=== PATIENT | male | born 1970 | race Caucasian/White ===

== ENCOUNTER 2025-04-25 12:00 | Inpatient (IN) | payer MEDICAID ==
[~2025-04-25] VITALS: Ht 177.8 cm; Wt 136.9 kg
[~2025-04-25 12:00] MED LIST: ACET500T58 PO; CEPH250C PO; IBUP-1455 PO
--- NOTE | 2025-04-25 13:15 | ED.PDOC ---
History of Present Illness(SKN HPI Comments A 54 YEAR OLD MALE BROUGHT IN BY AMBULANCE PRESENTS TO THE ED WITH COMPLAINT OF RASH. PATIENT STATES HE HAS BEEN EXPERIENCING A PAINFUL RASH ON HIS BILATERAL INNER THIGHS. PUBIC REGION, AND BUTTOCK REGIONS WITH DRAINAGE AND A FOUL ODOR FOR THE PAST 5 DAYS. PATIENT IS CONCERNED THAT THIS RASH IS CURRENTLY INFECTED. PATIENT DENIES FEVER, CHILLS, SHORTNESS OF BREATH, CHEST PAIN, ABDOMINAL PAIN, NAUSEA, VOMITING, HEADACHE, OR OTHER COMPLAINTS. NO OTHER SYMPTOMS OR MODIFYING FACTORS AT THIS TIME. PATIENT IS ALERT, ORIENTED X 4. Chief Complaint: Rash Time Seen by MD: 12:17 Primary Care Provider: unknown History of Present Illness: Nurses Notes, Failure Analysis Engineer Notes, Medications, Allergies Home Meds Active Scripts Acetaminophen (Acetaminophen) 500 Mg Tab, 500 MG PO Q4HP PRN, #30 TAB Prov:NIEVES SPRING PAC 11/26/23 Ibuprofen Micronized (Ibuprofen) 800 Mg Tab, 800 MG PO Q8HP PRN, #20 TAB Prov:NIEVES SPRING PAC 11/26/23 Cephalexin (KEFLEX CAPSULE) 250 Mg Cp, 1 CAP PO QID, #40 CAP Prov:NIEVES SPRING PAC 11/26/23 Information Source: Patient, Emergency Med Personnel Mode of Arrival: EMS Severity: Moderate Timing: Days Duration: Since onset, Days Prehospital treatment: None Location: Buttock, Pelvis, Other (BILATERAL INNER THIGH) Mechanism: Spontaneous Onset Developed: Rash Occurence: Indoors Object: None Condition of Object: Contaminated, Dirty, None Retained Foreign Body: No Wound Type: None Immunization Status of Animal: NA Tetanus: Unknown History of: Diabetes Associated Signs and Symptoms: Redness, Pus, Pain Past Medical History PAST MEDICAL HISTORY: CKF, DM, HTN Surgical History: Denies all surgeries Family History Family History: Reviewed,noncontributory to illness Social History Smoker: Non-Smoker Alcohol: Denies ETOH Use Drugs: Denies Drug Use Lives In: Home Constitutional: denies: chills, diaphoresis, fatigue, fever, malaise, sweats, weakness, others EENTM: denies: blurred vision, double vision, ear bleeding, ear discharge, ear drainage, ear pain, ear ringing, eye pain, eye redness, hearing loss, mouth pain, mouth swelling, nasal discharge, nose bleeding, nose congestion, nose pain, photophobia, tearing, throat pain, throat swelling, voice changes, others Respiratory: denies: cough, hemoptysis, orthopnea, SOB at rest, shortness of breath, SOB with excertion, stridor, wheezing, others Cardiovascular: denies: chest pain, dizzy spells, diaphoresis, Dyspnea on exertion, edema, irregular heart beat, left arm pain, lightheadedness, palpitations, PND, syncope, others Gastrointestinal: denies: abdomen distended, abdominal pain, blood streaked bowels, constipated, diarrhea, dysphagia, difficulty swallowing, hematemesis, melena, nausea, poor appetite, poor fluid intake, rectal bleeding, rectal pain, vomiting, others Genitourinary: denies: burning, dysuria, flank pain, frequency, hematuria, incontinence, penile discharge, penile sore, pain, testicle pain, testicle swelling, urgency, others Neurological: denies: dizziness, fainting, headache, left sided numbness, left sided weakness, numbness, paresthesia, pre-existing deficit, right sided numbness, right sided weakness, seizure, speech problems, tingling, tremors, weakness, others Musculoskeletal: denies: back pain, gout, joint pain, joint swelling, muscle pain, muscle stiffness, neck pain, others Integumetry: reports: lesions, rash (RASH OF BILATERAL INNER THIGHS, PUBIC REGION, AND BUTTOCK REGION), wounds; denies: bruises, change in color, change in hair/nails, dryness, laceration, lumps, others Allergic/Immunocompromised: denies: Difficulty Healing, Frequent Infections, Hives, Itching, others Hematologic/Lymphatic: denies: anemia, blood clots, easy bleeding, easy bruising, swollen glands, others Endocrine: denies: excessive hunger, excessive sweating, excessive thirst, excessive urination, flushing, intolerance to cold, intolerance to heat, une xplained weight gain, unexplained weight loss, others Psychiatric: denies: anxiety, bipolar disorder, depression, hopeless, panic disorder, schizophrenia, sleepless, suicidal, others All Other Systems: Reviewed and Negative Physical Exam General Appearance: Mild Distress, Obese HEENT: Normal ENT Inspection, PERRL/EOMI, Pharynx Normal, TMs Normal Neck: Full Range of Motion, Non-Tender, Normal, Normal Inspection Respiratory: Chest Non-Tender, Lungs Clear, No Accessory Muscle Use, No Respiratory Distress, Normal Breath Sounds Cardiovascular: No Edema, No JVD, No Murmur, No Gallop, Normal Peripheral Pulses, Regular Rate/Rhythm Breast Exam: Deferred Gastrointestinal: No Organomegaly, Non Tender, No Pulsatile Mass, Normal Bowel Sounds, Soft Genitalia: Deferred Pelvic: Lesions, Other (ERYTHEMA AND PATCHY SKIN RASH NOTED TO BILATERAL GROIN AREA THAT EXTENDS TO POSTERIOR UPPER INNER THIGHS AND BUTTOCK REGION. 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 ) Peripheral Pulses: 2+ carotid (R), 2+ carotid (L), 2+ dorsalis pedis (R), 2+ dorsalis pedis (L) Lymphatic: No Adenopathy Was a procedure done? Was a procedure done?: No Differential Diagnosis (INTG) Differential Diagnosis: N/A Differential Diagnosis: Atopic dermatitis, Cellulitis, Contact Dermatitis, Erysipelas, Tinea, Urticaria Differential Diagnosis: N/A Abscess: N/A Differential Diagnosis: N/A X-Ray, Labs, Meds, VS Vital Signs Date Time Temp Pulse Resp B/P (MAP) Pulse Ox O2 Delivery O2 Flow Rate FiO2 04/25/25 12:02 98.9 108 17 119/84 99 98.9 Lab Test 04/25/25 13:18 04/25/25 13:15 Range/Units Lactic Acid Level Pending White Blood Count 12.9 H 4.4-10.8 10^3/uL Red Blood Count 4.95 4.5-5.90 10^6/uL Hemoglobin 14.9 13.5-17.5 g/dL Hematocrit 43.7 41.0-53.0 % Mean Corpuscular Volume 88.4 80.0-100.0 fL Mean Corpuscular Hemoglobin 30.1 28.0-32.0 pg Mean Corpuscular Hemoglobin Concent 34.1 32.0-36.0 g/dL Red Cell Distribution Width 15.3 H 11.8-14.3 % Platelet Count 338 140-450 10^3/uL Mean Platelet Volume 7.3 6.9-10.8 fL Neutrophils (%) (Auto) 85.1 H 37.0-80.0 % Lymphocytes (%) (Auto) 7.3 L 10.0-50.0 % Monocytes (%) (Auto) 6.7 0.0-12.0 % Eosinophils (%) (Auto) 0.6 0.0-7.0 % Basophils (%) (Auto) 0.3 0.0-2.0 % Neutrophils # (Auto) 11.0 H 1.6-8.6 10 ^3/uL Lymphocytes # (Auto) 0.9 0.4-5.4 10 ^3/uL Monocytes # (Auto) 0.9 0-1.3 10 ^3/uL Eosinophils # (Auto) 0.1 0-0.8 10 ^3/uL Basophils # (Auto) 0 0-0.2 10 ^3/uL Nucleated Red Blood Cells 0.0 % Sodium Level Pending Potassium Level Pending Chloride Level Pending Carbon Dioxide Level Pending Anion Gap Pending Blood Urea Nitrogen Pending Creatinine Pending Glomerular Filtration Rate Calc Pending BUN/Creatinine Ratio Pending Serum Glucose Pending Calcium Level Pending X-Ray, Labs, Meds, VS Comment EXTERNAL MEDICAL RECORDS REVIEWED: [NONE] INDEPENDENT HISTORIANS: [NONE] SOCIAL DETERMINANTS OF HEALTH: [NONE] LABS ORDERED: CBC, BMP, UA, LACTIC ACID W/REFLEX, BLOOD CULTURE REVIEWED AND INTERPRETED RESULTS: IMAGING ORDERED: NONE TREATMENTS ORDERED: ROCEPHIN 2 G IV PROCEDURES PERFORMED: NONE CRITICAL CARE TIME: NONE I HAVE DISCUSSED THE PATIENT WITH THE ATTENDING PHYSICIAN DR. SERRA AND HE AGREES WITH THE PATIENT'S PLAN OF CARE. UPON MY PHYSICAL EXAMINATION, THE PATIENT HAD A RASH ON HIS BILATERAL INNER THIGHS, PUBIC REGION, AND BUTTOCK REGION WITH ERYTHEMA, DRAINAGE, AND FOUL ODOR CONSISTENT WITH TINEA CRURIS AND A SECONDARY CELLULITIS INFECTION. NO OPEN WOUNDS WERE NOTED. DUE TO THE PATIENT'S HISTORY OF DIABETES, MORBIDITY, AND HIS PHYSICAL EXAM FINDINGS BEING CONSISTENT WITH TINEA CRURIS AND A SECONDARY CELLULITIS INFECTION, I HAVE DETERMINED THE PATIENT NEEDS TO BE ADMITTED FOR FURTHER TREATMENT AND EVALUATION. THE ON-CALL HOSPITALIST WILL BE CONTACTED FOR ADMISSION OF THE PATIENT. Time of 1ST Reevaluation: 14:15 Reevaluation 1ST: Unchanged Patient Education/Counseling: Diagnosis, Treatment Family Education/Counseling: Diagnosis, Treatment SEPSIS Sepsis Screen Date sepsis recognized/suspect: Apr 25, 2025 Time Sepsis recognized/suspect: 1202 Recent Procedure: No On Antibiotic Therapy: No Respiratory Rate >20: No Heart Rate >90: Yes Temp<36 C (96.8 F) or >38.3 C: No SBP <90 or MAP <65 mmHG: No New Acute Mental Status Change: No Is the patient on CPAP, BIPAP,: No Physician Orders Basic Metabolic Panel (04/25/25 13:07) Urinalysis (04/25/25 13:07) Lactic Acid W/ Reflex Order (04/25/25 13:07) Blood Culture (04/25/25 13:07) Heplock Iv (04/25/25 ) Ceftriaxone 2gm/50ml (Rocephin 2gm/50ml) (04/25/25 13:15) Vital Signs Date Time Temp Pulse Resp B/P (MAP) Pulse Ox O2 Delivery O2 Flow Rate FiO2 04/25/25 12:02 98.9 108 17 119/84 99 98.9 Laboratory Tests Test 04/25/25 13:15 04/25/25 13:18 White Blood Count 12.9 10^3/uL (4.4-10.8) H Lactic Acid Level Pending Departure 1 Departure Time of Disposition: 14:15 Impression: Primary Impression: Cellulitis of groin Additional Impressions: Tinea cruris Morbid obesity Disposition: 09 ADMITTED INPATIENT Condition: Serious Critical Care Note Critical Care Time?: No Stability Stability form required: Yes Unstable for transfer: Requires medication, Needs higher than EMT, Possible rapid decline I personally scribed for DAISY BUSTOS ([email or web address]) on 04/25/25 at 13:15. Electronically submitted by Jean Pierre Riley ([email or web address]). I personally scribed for DAISY BUSTOS ([email or web address]) on 04/25/25 at 13:16. Electronically submitted by Jean Pierre Riley ([email or web address]). DAISY BUSTOS Apr 25, 2025 13:15
[2025-04-25 13:54] LABS: Hematocrit 43.7 % (41.0-53.0); Hemoglobin 14.9 g/dL (13.5-17.5); Mean Corpuscular Hemoglobin 30.1 pg (28.0-32.0); Mean Corpuscular Volume 88.4 fL (80.0-100.0); Nucleated Red Blood Cells % 0.0 %
[2025-04-25 14:03] LABS: Chloride 101 mmol/L (98-107); Potassium 4.9 mmol/L (3.5-5.1)
[2025-04-25 14:04] LABS: Anion Gap 12 (5-15); Carbon Dioxide 21 mmol/L (20-31)
[2025-04-25 14:06] LABS: Calcium 10.6 mg/dL (8.7-10.4); Sodium 134 mmol/L (136-145)
[2025-04-25 14:09] LABS: BUN/Creatinine Ratio 31.2 (10.0-20.0); Blood Urea Nitrogen 59 mg/dL (9-23); Glucose 164 mg/dL (74-106)
[2025-04-25] MEDS: CLOTRIMAZOLE 1 % CREAM 15GM TOP ONE (15:15)
[2025-04-25] MEDS ORDERED: DEXTROSE (50%) 50ML SYRG IV PRN (15:15)
[2025-04-25] MEDS ORDERED: MORPHINE SULFATE INJ 2 MG/ml SYRG IV PRN (15:15)
[2025-04-25] MEDS: CLINDAMYCIN 300MG IV 50 ML IV ONE (15:15)
[2025-04-25] MEDS ORDERED: ONDANSETRON HCL 4 MG/2 ML VIAL IV PRN (15:15)
[2025-04-25 15:41] LABS: INR 1.93 (0.9-1.15); Partial Thromboplastin Time 45.0 SEC (24.5-34.5); Prothrombin Time 19.2 sec (9.3-11.8)
--- NOTE | 2025-04-25 15:56 | DVHHP2 ---
History of Present Illness History of Present Illness This is a 54-year-old male with with past medical history of type 2 diabetes mellitus, hypertension, HLD, type B aortic dissection, peripheral neuropathy, hypokalemia, chronic back, spinal stenosis with herniated disc pain present to ER with the complain of rash in perineal region including genitalia and bilateral inner thigh associated with urinary symptoms for 7 days accompanied with fever. Patient reports his perineal area rash that started 7 days ago and has been progressively worsen . For past 5 days he has been noticed brownish discharge and painful micturition. He has been experiencing fever since Monday and took Tylenol. symptoms appear significant discomfort. Never done angiogram or stress test, seen by cardiology in 2010. Past medical history: Type 2 diabetes mellitus with peripheral neuropathy, HTN, hypercholesterolemia, type B aortic dissection in 2009 not surgically treated Surgical history: Oral surgery Family history: Paternal grandmother: Cancer Social history: Substance abuse occasionally alcohol, denies any marijuana cocaine or methamphetamine Decision-making: Patient is the decision maker and his medical care, lives with roommate in a private house PCP: unknown Home medication: Diltiazem, pantoprazole, aspirin, enalapril, gabapentin, metformin, glipizide, potassium chloride, tramadol, furosemide , rosuvastatin, amitriptyline, iron, fish oil, Pepcid Review of Systems Constitutional: Yes: Fever, Chills, Malaise Musculoskeletal: other (Gait instability), back pain Skin: Rash, Lesions, Other (Foul smelling discharge perineal region) Medications Current Medications Medications Dose Ordered Sig/Yamileth Route Start Time Stop Time Status Last Admin Dose Admin Acetaminophen 650 mg Q6HP PRN PO 04/25/25 15:15 UNV Ondansetron HCl 4 mg Q4HP PRN IV 04/25/25 15:15 UNV Morphine Sulfate 2 mg Q4HPRN PRN IV 04/25/25 15:15 UNV Enoxaparin Sodium 40 mg DAILY SC 04/26/25 10:00 UNV Clindamycin Phosphate 50 ml @ 50 mls/hr Q8HR IV 04/25/25 22:00 UNV Ceftriaxone Sodium 50 ml @ 100 mls/hr DAILY@09 IV 04/26/25 09:00 UNV Clotrimazole 1 applic Q12HR TOP 04/25/25 22:00 UNV Sodium Chloride 1,000 ml @ 150 mls/hr Q6H40M IV 04/25/25 15:15 UNV Diagnostic Test (Pha) 1 strip ACHS 04/25/25 17:00 UNV Insulin Human Regular ACHS SC 04/25/25 17:00 UNV Dextrose 50 ml UD PRN IV 04/25/25 15:15 UNV Exam Vital Signs Vital Signs Date Time Temp Pulse Resp B/P (MAP) Pulse Ox O2 Delivery O2 Flow Rate FiO2 04/25/25 12:02 98.9 108 17 119/84 99 98.9 General Appearance: Alert, Oriented X3, Cooperative, mild distress, moderate distress, Other (obese, foul smelling discharge in perineal region including genitalia) HEENT: Atraumatic, PERRLA Respiratory: Clear to auscultation, Normal air movement Cardiovascular: Regular rate, Normal S1, Normal S2 Abdominal: Normal bowel sounds, Soft, No tenderness Extremities: No clubbing, No cyanosis, Normal pulses Skin: No rashes, No breakdown Neuro: Normal speech, Other (Gait instability) Labs/Xrays Labs Test 04/25/25 13:18 04/25/25 13:15 Range/Units Lactic Acid Level 1.1 0.4-2.0 mmol/L White Blood Count 12.9 H 4.4-10.8 10^3/uL Red Blood Count 4.95 4.5-5.90 10^6/uL Hemoglobin 14.9 13.5-17.5 g/dL Hematocrit 43.7 41.0-53.0 % Mean Corpuscular Volume 88.4 80.0-100.0 fL Mean Corpuscular Hemoglobin 30.1 28.0-32.0 pg Mean Corpuscular Hemoglobin Concent 34.1 32.0-36.0 g/dL Red Cell Distribution Width 15.3 H 11.8-14.3 % Platelet Count 338 140-450 10^3/uL Mean Platelet Volume 7.3 6.9-10.8 fL Neutrophils (%) (Auto) 85.1 H 37.0-80.0 % Lymphocytes (%) (Auto) 7.3 L 10.0-50.0 % Monocytes (%) (Auto) 6.7 0.0-12.0 % Eosinophils (%) (Auto) 0.6 0.0-7.0 % Basophils (%) (Auto) 0.3 0.0-2.0 % Neutrophils # (Auto) 11.0 H 1.6-8.6 10 ^3/uL Lymphocytes # (Auto) 0.9 0.4-5.4 10 ^3/uL Monocytes # (Auto) 0.9 0-1.3 10 ^3/uL Eosinophils # (Auto) 0.1 0-0.8 10 ^3/uL Basophils # (Auto) 0 0-0.2 10 ^3/uL Nucleated Red Blood Cells 0.0 % Sodium Level 134 L 136-145 mmol/L Potassium Level 4.9 3.5-5.1 mmol/L Chloride Level 101 98-107 mmol/L Carbon Dioxide Level 21 20-31 mmol/L Anion Gap 12 5-15 Blood Urea Nitrogen 59 H 9-23 mg/dL Creatinine 1.89 H 0.700-1.30 mg/dL Glomerular Filtration Rate Calc 42 >90 mL/min BUN/Creatinine Ratio 31.2 H 10.0-20.0 Serum Glucose 164 H 74-106 mg/dL Calcium Level 10.6 H 8.7-10.4 mg/dL SEPSIS Sepsis Screen Date sepsis recognized/suspect: Apr 25, 2025 Time Sepsis recognized/suspect: 1202 Recent Procedure: No On Antibiotic Therapy: No Respiratory Rate >20: No Heart Rate >90: Yes Temp<36 C (96.8 F) or >38.3 C: No SBP <90 or MAP <65 mmHG: No New Acute Mental Status Change: No Is the patient on CPAP, BIPAP,: No Physician Orders Urinalysis (04/25/25 13:07) Blood Culture (04/25/25 13:07) Heplock Iv (04/25/25 ) Admit (04/25/25 15:06) Code Status (04/25/25 15:06) Vital Signs .PER UNIT PROTOCOL (04/25/25 15:06) Review Orders With Adm. (04/25/25 15:06) [facility]Diabetes (04/25/25 Dinner) Acetaminophen Tablet (Tylenol Tablet) (04/25/25 15:15) Notify Md Of Changes From Base (04/25/25 15:06) Advance Directive (04/25/25 15:06) Chest Two Views Routine (04/26/25 04:00) Patient Condition (04/25/25 15:06) Allergies (04/25/25 15:06) Ondansetron Hcl (Zofran) (04/25/25 15:15) Morphine Sulfate Injection (04/25/25 15:15) Enoxaparin Sodium (Lovenox) (04/26/25 10:00) Oxygen By Nasal Cannula (04/25/25 15:06) Stat Ekg For Chest Pain (04/25/25 15:06) Notify Md Of Changes From Base (04/25/25 15:06) Commercial Artist For 24 Hours (04/25/25 15:06) Emergency Dysrhythmia Protocol (04/25/25 15:06) Rhythm Strips Once Every Shift (04/25/25 15:06) Clindamycin 300mg Iv (Cleocin Iv) (04/25/25 22:00) Clindamycin 300mg Iv (Cleocin Iv) (04/25/25 15:15) Ceftriaxone 1gm/50ml (Rocephin) (04/26/25 09:00) Clotrimazole 1% Topical Cream (Lotrimin (04/25/25 15:15) Clotrimazole 1% Topical Cream (Lotrimin (04/25/25 22:00) Sodium Chloride 0.9% (04/25/25 15:15) Sodium Chloride 0.9% (04/25/25 15:15) Glucose Blood (Accu-Chek Comfort Curve T (04/25/25 17:00) Insulin R (Human) (Insulin R) (04/25/25 17:00) Dextrose 50% Syringe (04/25/25 15:15) Vitamin D, 25-Hydroxy (04/25/25 15:06) Vitamin B12 (04/25/25 15:06) Thyroid Stimulating Hormone (04/25/25 15:06) PTPTT (04/25/25 15:06) Phosphorus (04/25/25 15:06) Magnesium (04/25/25 15:06) Lipid Panel (04/25/25 15:06) Hemoglobin A1c (04/25/25 15:06) Drug Screen (04/25/25 15:06) Urine Bacterial Culture (04/25/25 15:06) * Wound Consult (04/25/25 ) Wound Culture W/ Gs (04/25/25 15:06) Electrocardigram (04/25/25 15:16) Hepatic Panel (04/25/25 15:16) Echo 2d Mode Cardiac Dop (04/25/25 15:18) Vital Signs Date Time Temp Pulse Resp B/P (MAP) Pulse Ox O2 Delivery O2 Flow Rate FiO2 04/25/25 12:02 98.9 108 17 119/84 99 98.9 Laboratory Tests Test 04/25/25 13:15 04/25/25 13:18 White Blood Count 12.9 10^3/uL (4.4-10.8) H Lactic Acid Level 1.1 mmol/L (0.4-2.0) Medications Medications Dose Ordered Sig/Yamileth Route Start Time Stop Time Status Last Admin Dose Admin Ceftriaxone Sodium/Dextrose 50 ml @ 50 mls/hr ONCE ONCE IV 04/25/25 13:15 04/25/25 14:14 DC 04/25/25 14:05 50 MLS/HR Assessment/Plan Assessment/Plan Sepsis due to cellulitis perineal area including genitalia Perineal Candidiasis Patient reports fever last 5 days which may be related to infection. Patient notes he hepatitis and urinary symptoms supports an infectious process leg cellulitis WBC 12.9 with left-shifted, neutrophil 85.1 Acetaminophen Morphine if dggvphib-[id number]-eybywv pain Encouraged hydration Started empiric antibiotic clindamycin and ceftriaxone Topical clotrimazole IV fluid 1 L bolus stat and then continue 150 cc/hour Blood culture Urine culture Wound culture Wound consult Monitor vitals Questionable cardiac arrhythmia Home medication diltiazem, carvedilol Aspirin EKG ordered Echo JAYESH due to vasomotor nephropathy Creatinine level 1.49 unknown baseline EGFR 42 Avoid Nephrotoxic drugs IV fluid Type 2 diabetes mellitus with peripheral neuropathy History of diabetes which appeared to be not well controlled Hemoglobin A1c Insulin sliding scale Home medication: Metformin, glipizide Gabapentin Amlodipine Essential hypertension Home medication enalapril and diltiazem Current blood pressure soft, we will resume accordingly Monitor blood pressure THERESE, NCS, low-fat diet Hyperlipidemia Cardiac diet Atorvastatin 20 mg Hyponatremia Sodium level 134, on admission BMP History of aortic dissection, no surgery History of type B aortic dissection in 2009 which was managed conservatively without surgery Not follow-up with 3d specialist since 2010 No stress test or angiogram done Continue aspirin for cardiovascular protection Diet: Carbohydrate consistent GI prophylaxis: Pantoprazole DVT prophylaxis Lovenox Goals of care discussions, more than 26 minute spent with patient. Full code status. Case discussed with Dr. Jimenes Plan discussed with: Patient, Other (Nurse) Date of Service: Apr 25, 2025 Billing Provider: ADAMS HURTADO Common Visit Codes: [id number] INP/OBS CARE (HIGH) Secondary Visit Codes: [id number] CARE PLAN 30 MINUTES ADAMS HURTADO Apr 25, 2025 15:56
[2025-04-25] MEDS: SODIUM CHLORIDE 0.9% 1,000 ML IV ONE (16:15)
[2025-04-25 16:20] LABS: Magnesium 1.9 mg/dL (1.6-2.6)
[2025-04-25 16:22] LABS: Cholesterol 121.0 mg/dL (< 200); HDL Cholesterol 11.0 mg/dL (40-59); Triglycerides 204.0 mg/dL (< 150)
[2025-04-25 16:27] VITALS: PULSE 107; RESP 17; O2SAT 93
[2025-04-25 16:48] LABS: Alanine Aminotransferase 29.0 U/L (7-40); Alkaline Phosphatase 61.0 U/L (46-116); Total Protein 7.6 g/dL (5.7-8.2)
[2025-04-25 16:49] LABS: Albumin 4.3 g/dL (3.2-4.8); Bilirubin, Direct 0.4 mg/dL (<0.3); Bilirubin, Total 0.9 mg/dL (0.2-1.0)
[2025-04-25 17:00] VITALS: BP 109/66; PULSE 102; RESP 18; TEMP 98; O2SAT 95
[2025-04-25 17:13] VITALS: PULSE 99; RESP 18; O2SAT 98
[2025-04-25] MEDS: SODIUM CHLORIDE 0.9% 1,000 ML IV SCH (17:15)
[2025-04-25] MEDS: ACCU-CHEK COMFORT CURVE STRIP VI SCH (17:30)
[2025-04-25] MEDS: InsuLIN REG 1unit/0.01ml Soln (100units/ml) SC SCH (17:30)
[2025-04-25 20:00] VITALS: RESP 19; O2SAT 0
[2025-04-25 21:00] VITALS: BP 125/79; PULSE 110; RESP 19; TEMP 97.9; O2SAT 97
[2025-04-25] MEDS: CLOTRIMAZOLE 1 % CREAM 15GM TOP SCH (22:19)
[2025-04-25] MEDS: ATORVASTATIN 20 MG TAB PO SCH (22:19)
[2025-04-25] MEDS: CLINDAMYCIN 300MG IV 50 ML IV SCH (22:20)
[2025-04-25] MEDS: AMITRIPTYLINE HCL 10 MG TAB PO SCH (22:20)
[2025-04-26] VITALS (8 sets, daily range): BP systolic 104–143; BP diastolic 64–95; PULSE 61–103; RESP 18–21; TEMP 97.6–98.1; O2SAT 94–100
[2025-04-26] MEDS: PANTOPRAZOLE 40 MG TAB PO SCH (05:36)
[2025-04-26 07:54] LABS: Hematocrit 38.8 % (41.0-53.0); Hemoglobin 13.4 g/dL (13.5-17.5); Mean Corpuscular Hemoglobin 30.0 pg (28.0-32.0); Mean Corpuscular Volume 86.9 fL (80.0-100.0); Nucleated Red Blood Cells % 0.2 %
[2025-04-26 07:55] LABS: Anion Gap 12 (5-15); Carbon Dioxide 21 mmol/L (20-31); Chloride 105 mmol/L (98-107); Potassium 4.3 mmol/L (3.5-5.1); Sodium 138 mmol/L (136-145)
[2025-04-26 07:56] LABS: Calcium 10.0 mg/dL (8.7-10.4)
[2025-04-26 08:01] LABS: BUN/Creatinine Ratio 44.9 (10.0-20.0)
[2025-04-26 08:02] LABS: Blood Urea Nitrogen 57 mg/dL (9-23); Glucose 142 mg/dL (74-106)
[2025-04-26] MEDS: ENOXAPARIN SOD 40 MG/0.4 ML SYRINGE SC SCH (09:45)
--- NOTE | 2025-04-26 11:00 | DVH ---
Chest x-ray Technique: PA and lateral views CLINICAL INDICATION: SOB FINDINGS: Left ventricular configuration to the heart. Aorta tortuous. No infiltrates or effusions. IMPRESSION: 1. No acute cardiopulmonary pathology
--- NOTE | 2025-04-26 16:38 | DVHPN2 ---
Subjective Patient is here for perineal cellulitis as well as perineal candidiasis. Currently on antibiotics and antifungal cream. Reviewed: Care Plan Changes from previous H/P or p: No Changes Musculoskeletal: other (Gait instability), back pain Skin: Rash, Lesions, Other (Foul smelling discharge perineal region) Objective Vitals Vital Signs Date Time Temp Pulse Resp B/P (MAP) Pulse Ox O2 Delivery O2 Flow Rate FiO2 04/26/25 16:27 97.6 96 20 124/87 (99) 96 97.6 04/26/25 08:00 Room Air* 0 21 Intake/Output Intake and Output 04/26/25 07:00 Intake Total 1650 ml Balance 1650 ml Intake Oral 1600 ml IV Total 50 ml # Voids 4 # Bowel Movements 2 Exam HEENT pupils are reactive Neck is supple CV is S1-S2 regular rate and rhythm Respiratory diminished breath sounds bases GI positive bowel sound 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 Medications Current Medications Medications Dose Ordered Sig/Yamileth Route Start Time Stop Time Status Last Admin Dose Admin Acetaminophen 650 mg Q6HP PRN PO 04/25/25 15:15 Ondansetron HCl 4 mg Q4HP PRN IV 04/25/25 15:15 Morphine Sulfate 2 mg Q4HPRN PRN IV 04/25/25 15:15 Enoxaparin Sodium 40 mg DAILY SC 04/26/25 10:00 04/26/25 09:45 40 MG Clindamycin Phosphate 50 ml @ 50 mls/hr Q8HR IV 04/25/25 22:00 04/26/25 15:57 50 MLS/HR Ceftriaxone Sodium 50 ml @ 100 mls/hr DAILY@09 IV 04/26/25 09:00 04/26/25 09:45 100 MLS/HR Clotrimazole 1 applic Q12HR TOP 04/25/25 22:00 04/26/25 10:28 1 APPLIC Sodium Chloride 1,000 ml @ 150 mls/hr Q6H40M IV 04/25/25 17:15 04/26/25 12:54 150 MLS/HR Diagnostic Test (Pha) 1 strip ACHS 04/25/25 17:00 04/26/25 11:30 1 STRIP Insulin Human Regular ACHS SC 04/25/25 17:00 04/26/25 12:24 3 UNITS Dextrose 50 ml UD PRN IV 04/25/25 15:15 Pantoprazole Sodium 40 mg DAILY@0600 PO 04/26/25 06:00 04/26/25 05:36 40 MG Amitriptyline HCl 10 mg HS PO 04/25/25 22:00 04/25/25 22:20 10 MG Atorvastatin Calcium 20 mg HS PO 04/25/25 22:00 04/25/25 22:19 20 MG Laboratory Results Laboratory Tests 04/26/25 07:30 Chemistry Test 04/26/25 07:30 Calcium Level 10.0 mg/dL (8.7-10.4) Microbiology Microbiology Date/Time Source Procedure Growth Status 04/25/25 13:15 Blood Blood Culture - Preliminary NO GROWTH AFTER 24 HOURS OF INCUBATION. Resulted Assessment/Plan Assessment/Plan 54-year-old male with a known history of diabetes mellitus type 2, hypertension, dyslipidemia, peripheral neuropathy, chronic back pain, history of type B aortic dissection conservative management, presented to the hospital with a perianal pain rash found to have 1. Perineal cellulitis 2. Perineal candidiasis 3. Acute kidney injury suspected secondary to vasomotor nephropathy 4. Hyperglycemia in the setting of Diabetes mellitus type 2 8. Chronic back pain 5. Hypertension 6. Peripheral neuropathy 7. Morbid obesity classIII -IV antibiotics, antifungal cream, PT evaluation and treatment. Plan discussed with: Patient Problem List: (1) Cellulitis of groin (2) Morbid obesity Date of Service: Apr 26, 2025 Billing Provider: DAMIAN SHEPPARD MD Common Visit Codes: [id number] INP/OBS CARE(MOD) DAMIAN SHEPPARD MD Apr 26, 2025 16:38
[2025-04-26] MEDS: ACETAMINOPHEN 325 MG TAB PO PRN (22:26)
[2025-04-27] VITALS (8 sets, daily range): BP systolic 132–147; BP diastolic 85–99; PULSE 78–96; RESP 18–20; TEMP 97.6–98; O2SAT 90–96
[2025-04-27 10:32] LABS: Urine Protein, UAD TRACE (Negative)
[2025-04-27 10:58] LABS: Amphetamine Screen, Urine Neg (NEGATIVE)
[2025-04-27 11:08] LABS: Barbiturate Scree,Urine Neg (NEGATIVE); Benzodiazephine Screen, Urine Neg (NEGATIVE); Cannabinoid Screen, Urine Neg (NEGATIVE); Cocaine Screen, Urine Neg (NEGATIVE); Opiate Scree,Urine Neg (NEGATIVE); Phencyclidine Screen, Urine Neg (NEGATIVE)
--- NOTE | 2025-04-27 12:52 | DVHPNRES ---
Progress Note Date Seen: Apr 27, 2025 Resident Creating Document: ADAMS HURTADO RESIDENT Medical Necessity Reason Pt with a Central, PICC or Fol: No Subjective Review of Systems This is a 54-year-old male with with past medical history of type 2 diabetes mellitus, hypertension, HLD, type B aortic dissection, peripheral neuropathy, hypokalemia, chronic back, spinal stenosis with herniated disc pain present to ER with the complain of rash in perineal region including genitalia and bilateral inner thigh associated with urinary symptoms for 7 days accompanied with fever. Patient reports his perineal area rash that started 7 days ago and has been progressively worsen . For past 5 days he has been noticed brownish discharge and painful micturition. He has been experiencing fever since Monday and took Tylenol. symptoms appear significant discomfort. Never done angiogram or stress test, seen by cardiology in 2010. Past medical history: Type 2 diabetes mellitus with peripheral neuropathy, HTN, hypercholesterolemia, type B aortic dissection in 2009 not surgically treated Surgical history: Oral surgery Family history: Paternal grandmother: Cancer Social history: Substance abuse occasionally alcohol, denies any marijuana cocaine or methamphetamine Decision-making: Patient is the decision maker and his medical care, lives with roommate in a private house PCP: unknown Home medication: Diltiazem, pantoprazole, aspirin, enalapril, gabapentin, metformin, glipizide, potassium chloride, tramadol, furosemide , rosuvastatin, amitriptyline, iron, fish oil, Pepcid Patient seen and evaluated in bedside today. Patient feeling better in compared to admission. Denies any fever, dysuria, abdominal pain, chest pain or any other acute distress, encouraged oral intake. No acute event overnight. Objective vital signs Vital Sign Date Time Temp Pulse Resp B/P (MAP) Pulse Ox O2 Delivery O2 Flow Rate FiO2 04/27/25 09:00 97.7 89 20 147/94 (111) 95 97.7 04/26/25 20:00 Room Air* 0 21 Total Intake and Output 04/26/25 04/26/25 04/27/25 15:00 23:00 07:00 Intake Total 580 ml 700 ml Output Total 400 ml Balance 180 ml 700 ml medications Current Medications Medications Dose Ordered Sig/Yamileth Route Start Time Stop Time Status Last Admin Dose Admin Acetaminophen 650 mg Q6HP PRN PO 04/25/25 15:15 04/26/25 22:26 650 MG Ondansetron HCl 4 mg Q4HP PRN IV 04/25/25 15:15 Morphine Sulfate 2 mg Q4HPRN PRN IV 04/25/25 15:15 Enoxaparin Sodium 40 mg DAILY SC 04/26/25 10:00 04/27/25 10:07 40 MG Clindamycin Phosphate 50 ml @ 50 mls/hr Q8HR IV 04/25/25 22:00 04/27/25 05:48 50 MLS/HR Ceftriaxone Sodium 50 ml @ 100 mls/hr DAILY@09 IV 04/26/25 09:00 04/27/25 10:07 100 MLS/HR Clotrimazole 1 applic Q12HR TOP 04/25/25 22:00 04/27/25 10:07 1 APPLIC Diagnostic Test (Pha) 1 strip ACHS 04/25/25 17:00 04/27/25 06:15 1 STRIP Insulin Human Regular ACHS SC 04/25/25 17:00 04/27/25 06:15 2 UNITS Dextrose 50 ml UD PRN IV 04/25/25 15:15 Pantoprazole Sodium 40 mg DAILY@0600 PO 04/26/25 06:00 04/27/25 05:48 40 MG Amitriptyline HCl 10 mg HS PO 04/25/25 22:00 04/26/25 22:16 10 MG Atorvastatin Calcium 20 mg HS PO 04/25/25 22:00 04/26/25 22:16 20 MG Nystatin 1 applic BID TOP 04/27/25 22:00 Tramadol HCl 50 mg Q6HP PRN PO 04/27/25 11:15 Examination General Appearance: Alert, Oriented X3, Cooperative, mild distress, moderate distress, obese HEENT: Atraumatic, PERRLA Respiratory: Clear to auscultation, Normal air movement Cardiovascular: Regular rate, Normal S1, Normal S2 Abdominal: Normal bowel sounds, Soft, No tenderness Extremities: No clubbing, No cyanosis, Normal pulses Skin: Respiration perineal area, less foul-smelling discharge on perineal area including genitalia Neuro: Normal speech, (Gait instability) laboratory and microbiology Laboratory Tests 04/26/25 07:30 Test 04/26/25 07:30 Range/Units Serum Glucose 142 H 74-106 mg/dL Microbiology Date/Time Source Procedure Growth Status 04/25/25 13:15 Blood Blood Culture - Preliminary NO GROWTH AFTER 24 HOURS OF INCUBATION. Resulted Problem List/Assessment/Plan Problem List/Assessment/Plan Sepsis due to cellulitis perineal area including genitalia Perineal Candidiasis WBC 12.9 with left-shifted, neutrophil 85.1 on admission WBC trending down monitor CBC Acetaminophen Tramadol 50 mg q.6 p.r.n. Encouraged hydration Continue IV antibiotic clindamycin and ceftriaxone Topical clotrimazole cream Nystatin powder Discontinue IVF ,encourage oral intake Blood culture x2 negative on 04/25/2025 Urine culture, Wound culture pending Wound consult Monitor vitals Questionable cardiac arrhythmia Home medication diltiazem, carvedilol Echo done on 04/26/2025, report pending We will resume diltiazem, after echo finding Aspirin 81 mg daily EKG JAYESH due to vasomotor nephropathy Creatinine level 1.49 unknown baseline EGFR 42 Avoid Nephrotoxic drugs IV fluid Type 2 diabetes mellitus with peripheral neuropathy History of diabetes which appeared to be not well controlled Hemoglobin A1c 5.8 Insulin sliding scale Home medication: Metformin, glipizide Gabapentin Amlodipine Essential hypertension Home medication resume accordingly Carvedilol 50 mg b.i.d. Monitor blood pressure THERESE, NCS, low-fat diet Hyperlipidemia Cardiac diet Atorvastatin 20 mg Hyponatremia Sodium level 134, on admission BMP History of aortic dissection, no surgery History of type B aortic dissection in 2009 which was managed conservatively without surgery Not follow-up with electroencephalographic technologist since 2010 No stress test or angiogram done Continue aspirin for cardiovascular protection Morbid obesity, BMI 43.0 Lifestyle modification Diet: Carbohydrate consistent GI prophylaxis: Pantoprazole DVT prophylaxis Lovenox Goals of care discussions, 21 minute spent with patient. Full code status. Case discussed with Dr. Berg Plan discussed with: Patient, Other (Nurse) My Orders My Orders Orders - ADAMS HURTADO RESIDENT Procedure Category Date Status Time Nystatin Powder PHA 04/27/25 In Process (Mycostatin Powder) 22:00 Tramadol Hcl (Ultram) PHA 04/27/25 In Process 11:15 Dietary Evaluation Review Recommendations by RD: Dietary education by RD Comments: 1) Initiate MVI @ 1 tb qd 2) Initiate vitamin C @ 500 mg bid and zinc sulfate @ 220 mg for 7 days 3) Encourage optimal PO intake 4) Refer to outpatient RD/CDCES for weight management 5) Follow-up with cardiology 6) Continue to monitor I&O, labs, and skin integrity Expected Outcomes/Goals: 1) appetite and labs to improve 2) wounds to improve 3) gradual wt loss 4) f/u in 3-5 days ADAMS HURTADO RESIDENT Apr 27, 2025 12:52
[2025-04-27] MEDS: CARVEDILOL 12.5 MG TAB PO ONE (14:59)
[2025-04-27] MEDS: CARVEDILOL 12.5 MG TAB PO SCH (22:16)
[2025-04-27] MEDS: NYSTATIN TOPICAL POWDER 15GM TOP SCH (22:25)
[2025-04-28] VITALS (8 sets, daily range): BP systolic 118–158; BP diastolic 83–103; PULSE 68–78; RESP 14–19; TEMP 97–98.5; O2SAT 92–96
--- NOTE | 2025-04-28 08:07 | ECG ---
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
[2025-04-28 08:22] LABS: Anion Gap 12 (5-15); Calcium 9.5 mg/dL (8.7-10.4); Carbon Dioxide 24 mmol/L (20-31); Chloride 105 mmol/L (98-107); Potassium 4.5 mmol/L (3.5-5.1); Sodium 141 mmol/L (136-145)
[2025-04-28 08:28] LABS: BUN/Creatinine Ratio 23.1 (10.0-20.0); Blood Urea Nitrogen 21 mg/dL (9-23); Glucose 126 mg/dL (74-106)
[2025-04-28 08:30] LABS: Magnesium 1.5 mg/dL (1.6-2.6)
[2025-04-28 08:37] LABS: Hematocrit 39.3 % (41.0-53.0); Hemoglobin 13.4 g/dL (13.5-17.5); Mean Corpuscular Hemoglobin 29.7 pg (28.0-32.0); Mean Corpuscular Volume 87.5 fL (80.0-100.0)
[2025-04-28 11:30] LABS: Total Cells Counted 100.0 (100)
[2025-04-28] MEDS: MAGNESIUM SULFATE 1GM/100ML 100 ML IV ONE (12:17)
[2025-04-28] MEDS ORDERED: hydrALAZINE HCL 20 MG/ML VL IV PRN (17:15)
[2025-04-28] MEDS: CARVEDILOL 12.5 MG TAB ONE (18:34)
--- NOTE | 2025-04-28 19:35 | DVHPNRES ---
Progress Note Date Seen: Apr 28, 2025 Resident Creating Document: ADAMS HURTADO RESIDENT Medical Necessity Reason Pt with a Central, PICC or Fol: No Medical Necessity Reason This is a 54-year-old male with with past medical history of type 2 diabetes mellitus, hypertension, HLD, type B aortic dissection, peripheral neuropathy, hypokalemia, chronic back, spinal stenosis with herniated disc pain present to ER with the complain of rash in perineal region including genitalia and bilateral inner thigh associated with urinary symptoms for 7 days accompanied with fever. Patient reports his perineal area rash that started 7 days ago and has been progressively worsen . For past 5 days he has been noticed brownish discharge and painful micturition. He has been experiencing fever since Monday and took Tylenol. symptoms appear significant discomfort. Never done angiogram or stress test, seen by cardiology in 2010. Past medical history: Type 2 diabetes mellitus with peripheral neuropathy, HTN, hypercholesterolemia, type B aortic dissection in 2009 not surgically treated Surgical history: Oral surgery Family history: Paternal grandmother: Cancer Social history: Substance abuse occasionally alcohol, denies any marijuana cocaine or methamphetamine Decision-making: Patient is the decision maker and his medical care, lives with roommate in a private house PCP: unknown Home medication: Diltiazem, pantoprazole, aspirin, enalapril, gabapentin, metformin, glipizide, potassium chloride, tramadol, furosemide , rosuvastatin, amitriptyline, iron, fish oil, Pepcid Seen and evaluated in bedside today. Patient rash in lower abdomen and perineal area improving. Patient denies any fever, dysuria, abdominal pain, chest pain. No acute event overnight. Objective vital signs Vital Sign Date Time Temp Pulse Resp B/P (MAP) Pulse Ox O2 Delivery O2 Flow Rate FiO2 04/28/25 17:00 98.5 70 16 118/83 (95) 96 98.5 04/28/25 08:00 Room Air* 0 21 Total Intake and Output 04/27/25 04/27/25 04/28/25 15:00 23:00 07:00 Intake Total 700 ml 850 ml Balance 700 ml 850 ml medications Current Medications Medications Dose Ordered Sig/Yamileth Route Start Time Stop Time Status Last Admin Dose Admin Acetaminophen 650 mg Q6HP PRN PO 04/25/25 15:15 04/26/25 22:26 650 MG Ondansetron HCl 4 mg Q4HP PRN IV 04/25/25 15:15 Enoxaparin Sodium 40 mg DAILY SC 04/26/25 10:00 04/28/25 09:21 40 MG Clindamycin Phosphate 50 ml @ 50 mls/hr Q8HR IV 04/25/25 22:00 04/28/25 14:32 50 MLS/HR Ceftriaxone Sodium 50 ml @ 100 mls/hr DAILY@09 IV 04/26/25 09:00 04/28/25 09:20 100 MLS/HR Clotrimazole 1 applic Q12HR TOP 04/25/25 22:00 04/28/25 09:22 1 APPLIC Diagnostic Test (Pha) 1 strip ACHS 04/25/25 17:00 04/28/25 17:07 1 STRIP Insulin Human Regular ACHS SC 04/25/25 17:00 04/28/25 17:17 3 UNITS Dextrose 50 ml UD PRN IV 04/25/25 15:15 Pantoprazole Sodium 40 mg DAILY@0600 PO 04/26/25 06:00 04/28/25 05:28 40 MG Amitriptyline HCl 10 mg HS PO 04/25/25 22:00 04/27/25 22:15 10 MG Atorvastatin Calcium 20 mg HS PO 04/25/25 22:00 04/27/25 22:15 20 MG Nystatin 1 applic BID TOP 04/27/25 22:00 04/28/25 09:22 1 APPLIC Tramadol HCl 50 mg Q6HP PRN PO 04/27/25 11:15 04/28/25 09:25 50 MG Tramadol HCl 50 mg Q6HP PRN PO 04/27/25 13:00 UNV Carvedilol 25 mg Q12HR PO 04/27/25 22:00 04/28/25 10:37 25 MG Hydralazine HCl 10 mg Q6HP PRN IV 04/28/25 17:15 Examination General Appearance: Alert, Oriented X3, Cooperative, mild distress, moderate distress, obese HEENT: Atraumatic, PERRLA Respiratory: Clear to auscultation, Normal air movement Cardiovascular: Regular rate, Normal S1, Normal S2 Abdominal: Normal bowel sounds, Soft, No tenderness Extremities: No clubbing, No cyanosis, Normal pulses Skin: Respiration perineal area, less foul-smelling discharge on perineal area including genitalia Neuro: Normal speech, (Gait instability) laboratory and microbiology Laboratory Tests 04/28/25 07:08 Test 04/28/25 07:08 Range/Units Serum Glucose 126 H 74-106 mg/dL Microbiology Date/Time Source Procedure Growth Status 04/27/25 16:24 Scrotum Gram Stain - Final Resulted 04/27/25 16:24 Scrotum Wound Culture - Preliminary Resulted 04/27/25 09:55 Voided Urine Urine Culture - Preliminary Resulted 04/25/25 13:15 Blood Blood Culture - Preliminary NO GROWTH AFTER 72 HOURS OF INCUBATION. Resulted Problem List/Assessment/Plan Problem List/Assessment/Plan Sepsis due to cellulitis perineal area including genitalia Perineal Candidiasis WBC 12.9 with left-shifted, neutrophil 85.1 on admission WBC trending down monitor CBC Acetaminophen Tramadol 50 mg q.6 p.r.n. Encouraged hydration Continue IV antibiotic clindamycin and ceftriaxone Topical clotrimazole cream Nystatin powder Blood culture x2 negative on 04/25/2025 Urine culture, Wound culture pending Wound consult Monitor vitals Questionable cardiac arrhythmia Home medication diltiazem, carvedilol Echo done on 04/26/2025, report pending We will resume diltiazem, after echo finding Aspirin 81 mg daily EKG JAYESH due to vasomotor nephropathy Creatinine level 1.49 unknown baseline Avoid Nephrotoxic drugs Encouraged oral fluid intake Type 2 diabetes mellitus with peripheral neuropathy Hemoglobin A1c 5.8 Insulin sliding scale Home medication: Metformin, glipizide Gabapentin Amlodipine Essential hypertension Home medication resume accordingly Carvedilol 50 mg b.i.d. Monitor blood pressure THERESE, NCS, low-fat diet Hyperlipidemia Cardiac diet Atorvastatin 20 mg Hypomagnesemia Magnesium level 1.5 on 04/28/2025 Supplemented Hyponatremia Sodium level 134, on admission BMP History of aortic dissection, no surgery History of type B aortic dissection in 2009 which was managed conservatively without surgery Not follow-up with medical pathology teacher since 2010 No stress test or angiogram done Continue aspirin for cardiovascular protection Morbid obesity, BMI 43.0 Lifestyle modification Diet: Carbohydrate consistent GI prophylaxis: Pantoprazole DVT prophylaxis Lovenox Goals of care discussions, 19 minute spent with patient. Full code status. Case discussed with Dr. Cristobal Plan discussed with: Patient, Other (Nurse) My Orders My Orders Orders - ADAMS HURTADO RESIDENT Procedure Category Date Status Time Hydralazine Injection PHA 04/28/25 In Process (Apresoline Inject 17:15 Dietary Evaluation Review Recommendations by RD: Dietary education by RD Comments: 1) Initiate MVI @ 1 tb qd 2) Initiate vitamin C @ 500 mg bid and zinc sulfate @ 220 mg for 7 days 3) Encourage optimal PO intake 4) Refer to outpatient RD/CD[facility] for weight management 5) Follow-up with cardiology 6) Continue to monitor I&O, labs, and skin integrity Expected Outcomes/Goals: 1) appetite and labs to improve 2) wounds to improve 3) gradual wt loss 4) f/u in 3-5 days Date of Service: Apr 28, 2025 Billing Provider: RABIA CRISTOBAL MD Common Visit Codes: [id number] INP/OBS CARE(HIGH) ADAMS HURTADO RESIDENT Apr 28, 2025 19:35 RABIA CRISTOBAL MD Apr 28, 2025 21:56
[2025-04-29] VITALS (7 sets, daily range): BP systolic 124–157; BP diastolic 83–98; PULSE 66–81; RESP 17–20; TEMP 97.6–98.5; O2SAT 94–96
[2025-04-29 08:51] LABS: Anion Gap 10 (5-15); Carbon Dioxide 23 mmol/L (20-31); Chloride 104 mmol/L (98-107); Potassium 4.9 mmol/L (3.5-5.1); Sodium 137 mmol/L (136-145)
[2025-04-29 08:53] LABS: Calcium 9.4 mg/dL (8.7-10.4)
[2025-04-29 08:57] LABS: BUN/Creatinine Ratio 17.6 (10.0-20.0); Blood Urea Nitrogen 13 mg/dL (9-23)
[2025-04-29 08:59] LABS: Glucose 144 mg/dL (74-106)
[2025-04-29 09:01] LABS: Hematocrit 39.9 % (41.0-53.0); Hemoglobin 13.2 g/dL (13.5-17.5); Mean Corpuscular Hemoglobin 29.0 pg (28.0-32.0); Mean Corpuscular Volume 87.7 fL (80.0-100.0); Nucleated Red Blood Cells % 0.1 %
--- NOTE | 2025-04-29 11:23 | ECG ---
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
[2025-04-29] MEDS: ZINC SULFATE 220mg CAP or TAB PO SCH (12:03)
[2025-04-29] MEDS: ASCORBIC ACID 500 MG TAB PO SCH (12:04)
[2025-04-29] MEDS: LACTULOSE 20Gm/30ML SOLN PO ONE (12:36)
--- NOTE | 2025-04-29 13:35 | DVHSR ---
APPROVED REPORT EXAM: Two-dimensional and M-mode echocardiogram with Doppler and color Doppler. Blood Pressure: 132/84 mmHg INDICATION Evaluate EF RISK FACTORS Obesity: Height: 5'10", Weight: 304 DIMENSIONS LVDd4.5 (3.8-5.7cm)LA (2D)4.2 (1.9-4.0cm)Aortic Root4.2 (2.0-3.7cm) LVDs2.9 (2.5-4.0cm)LA (MM) (1.9-4.0cm)Aortic Cusp Exc1.6 (1.5-2.0cm) EF (%) 60.0 (55-70%)Rt. Atrium (1.9-4.0cm)Asc. Aorta4.2 cm IVSd1.1 (0.7-1.1cm)RV (D) (1.8-2.4cm) PWd1.2 (0.7-1.1cm) Mitral Valve MitralMitral Stenosis E wave0.59m/sMV Mean GR.mmHg A wave1.16m/sMV Peak GR.mmHg E/A ratio0.52D MVAcm2 DECEL [id number] 1/2 Timems Aortic Valve Aortic ValveAortic Stenosis V11.42m/Aline Mean GR.7mmHg V21.72m/Aline Peak GR.12mmHg LVOT Diameter2.1 (1.8-2.4cm)Doppler AVA2.86cm2 Pulmonic Valve V21.24m/s Other Information Quality : LimitedRhythm : Technically limited study due to body habitus. Conclusion Sinus rhythm. Concentric LVH. Left atrial enlargement. Aortic root enlargement. Moderate mitral annular calcification of the base of the posterior mitral leaflet. The aortic valves are sclerotic however not stenotic. Left ventricular function is preserved. EF is 60%. Normal RV function. Doppler shows mild TR. No pericardial effusion masses or vegetations.
--- NOTE | 2025-04-29 18:29 | DVH ---
RENAL ULTRASOUND History: Hematuria Comparison: None Technique: Multiple real-time sonographic images of the kidney and bladder were obtained in conjuncti on with Doppler imaging. Findings: The right kidney measures 12.8 cm and demonstrates no evidence of hydronephrosis, perinephric fluid c ollection, or shadowing stone. The left kidney measures 13.9 cm and demonstrates no evidence of hydronephrosis, perinephric fluid co llection, or shadowing stone. Urinary bladder: Postvoid residual 54 cc. Impression: No hydronephrosis. Bladder postvoid residual of 54 cc.
--- NOTE | 2025-04-29 19:40 | DVHPNRES ---
Progress Note Date Seen: Apr 29, 2025 Resident Creating Document: ADAMS HURTADO RESIDENT Medical Necessity Reason Pt with a Central, PICC or Fol: No Subjective Review of Systems This is a 54-year-old male with with past medical history of type 2 diabetes mellitus, hypertension, HLD, type B aortic dissection, peripheral neuropathy, hypokalemia, chronic back, spinal stenosis with herniated disc pain present to ER with the complain of rash in perineal region including genitalia and bilateral inner thigh associated with urinary symptoms for 7 days accompanied with fever. Patient reports his perineal area rash that started 7 days ago and has been progressively worsen . For past 5 days he has been noticed brownish discharge and painful micturition. He has been experiencing fever since Monday and took Tylenol. symptoms appear significant discomfort. Never done angiogram or stress test, seen by cardiology in 2010. Past medical history: Type 2 diabetes mellitus with peripheral neuropathy, HTN, hypercholesterolemia, type B aortic dissection in 2009 not surgically treated Surgical history: Oral surgery Family history: Paternal grandmother: Cancer Social history: Substance abuse occasionally alcohol, denies any marijuana cocaine or methamphetamine Decision-making: Patient is the decision maker and his medical care, lives with roommate in a private house PCP: unknown Home medication: Diltiazem, pantoprazole, aspirin, enalapril, gabapentin, metformin, glipizide, potassium chloride, tramadol, furosemide , rosuvastatin, amitriptyline, iron, fish oil, Pepcid Patient seen and evaluated in bedside today. Patient complained of bloody urine. No history of renal stone as per patient. Denies any fever, abdominal pain, dysuria. No acute event overnight. Objective vital signs Vital Sign Date Time Temp Pulse Resp B/P (MAP) Pulse Ox O2 Delivery O2 Flow Rate FiO2 04/29/25 17:29 97.9 76 20 129/91 (104) 95 97.9 04/29/25 08:00 Room Air* 0 21 Total Intake and Output 04/28/25 04/28/25 04/29/25 15:00 23:00 07:00 Intake Total 150 ml 1979 ml 150 ml Balance 150 ml 1979 ml 150 ml medications Current Medications Medications Dose Ordered Sig/Yamileth Route Start Time Stop Time Status Last Admin Dose Admin Acetaminophen 650 mg Q6HP PRN PO 04/25/25 15:15 04/26/25 22:26 650 MG Ondansetron HCl 4 mg Q4HP PRN IV 04/25/25 15:15 Enoxaparin Sodium 40 mg DAILY SC 04/26/25 10:00 04/29/25 12:07 40 MG Clindamycin Phosphate 50 ml @ 50 mls/hr Q8HR IV 04/25/25 22:00 04/29/25 15:55 50 MLS/HR Ceftriaxone Sodium 50 ml @ 100 mls/hr DAILY@09 IV 04/26/25 09:00 04/29/25 12:56 100 MLS/HR Clotrimazole 1 applic Q12HR TOP 04/25/25 22:00 04/29/25 10:00 1 APPLIC Diagnostic Test (Pha) 1 strip ACHS 04/25/25 17:00 04/29/25 16:23 1 STRIP Insulin Human Regular ACHS SC 04/25/25 17:00 04/29/25 16:23 3 UNITS Dextrose 50 ml UD PRN IV 04/25/25 15:15 Pantoprazole Sodium 40 mg DAILY@0600 PO 04/26/25 06:00 04/29/25 06:13 40 MG Amitriptyline HCl 10 mg HS PO 04/25/25 22:00 04/28/25 22:31 10 MG Atorvastatin Calcium 20 mg HS PO 04/25/25 22:00 04/28/25 22:35 20 MG Nystatin 1 applic BID TOP 04/27/25 22:00 04/29/25 10:00 1 APPLIC Tramadol HCl 50 mg Q6HP PRN PO 04/27/25 11:15 04/28/25 22:38 50 MG Tramadol HCl 50 mg Q6HP PRN PO 04/27/25 13:00 UNV Carvedilol 25 mg Q12HR PO 04/27/25 22:00 04/29/25 12:04 25 MG Hydralazine HCl 10 mg Q6HP PRN IV 04/28/25 17:15 Zinc Sulfate 220 mg DAILY PO 04/29/25 10:00 04/29/25 12:03 220 MG Ascorbic Acid 500 mg DAILY PO 04/29/25 10:00 04/29/25 12:04 500 MG Enalapril Maleate 20 mg DAILY PO 04/30/25 10:00 UNV Diltiazem HCl 120 mg DAILY PO 04/30/25 10:00 UNV Atorvastatin Calcium 40 mg HS PO 04/29/25 22:00 UNV Examination General Appearance: Alert, Oriented X3, Cooperative, mild distress, moderate distress, obese HEENT: Atraumatic, PERRLA Respiratory: Clear to auscultation, Normal air movement Cardiovascular: Regular rate, Normal S1, Normal S2 Abdominal: Normal bowel sounds, Soft, No tenderness Extremities: No clubbing, No cyanosis, Normal pulses Skin: Respiration perineal area, less foul-smelling discharge on perineal area including genitalia Neuro: Normal speech, (Gait instability) laboratory and microbiology Laboratory Tests 04/29/25 07:55 Test 04/29/25 07:55 Range/Units Serum Glucose 144 H 74-106 mg/dL Microbiology Date/Time Source Procedure Growth Status 04/27/25 16:24 Scrotum Gram Stain - Final Resulted 04/27/25 16:24 Scrotum Wound Culture - Preliminary Resulted 04/27/25 09:55 Voided Urine Urine Culture - Final Complete 04/25/25 13:15 Blood Blood Culture - Preliminary NO GROWTH AFTER 72 HOURS OF INCUBATION. Resulted Problem List/Assessment/Plan Problem List/Assessment/Plan Sepsis due to cellulitis perineal area including genitalia Perineal Candidiasis WBC 12.9 with left-shifted, neutrophil 85.1 on admission WBC trending down monitor CBC Acetaminophen Tramadol 50 mg q.6 p.r.n. Encouraged hydration Continue IV antibiotic clindamycin and ceftriaxone Topical clotrimazole cream Nystatin powder Zinc and vitamin-C Blood culture x2 negative on 04/25/2025 Urine culture shows mixed livia Wound culture -preliminary report Monitor vitals Questionable cardiac arrhythmia Home medication diltiazem, carvedilol Echo done on 04/26/2025, report pending Diltiazem 120 mg ER daily Carvedilol 25 mg b.i.d. EKG JAYESH due to vasomotor nephropathy Creatinine level 1.49 unknown baseline, on admission Avoid Nephrotoxic drugs Encouraged oral fluid intake Type 2 diabetes mellitus with peripheral neuropathy Hemoglobin A1c 5.8 Insulin sliding scale Home medication: Metformin, glipizide Gabapentin Essential hypertension Home medication resume accordingly Diltiazem 120 mg ER daily Carvedilol 25 mg b.i.d. Enalapril 20 mg p.o. 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 Full code status. Case discussed with Dr. Jimenes Plan discussed with: Patient, Other (Nurse) My Orders My Orders Orders - ADAMS HURTADO Procedure Category Date Status Time Mrsa Screen THO 04/28/25 Uncollected 19:38 Zinc Sulfate PHA 04/29/25 In Process 10:00 Ascorbic Acid Tablet PHA 04/29/25 In Process (Vitamin C Tablet) 10:00 Urinalysis LAB 04/29/25 Logged 17:57 Kidney US 04/29/25 Resulted 17:57 Enalapril Tablet PHA 04/30/25 Logged (Vasotec Tablet) 10:00 Diltiazem Er Capsule PHA 04/30/25 Logged (Cardizem Er Capsul 10:00 Atorvastatin (Lipitor) PHA 04/29/25 Logged 22:00 Dietary Evaluation Review Recommendations by RD: Dietary education by RD Comments: 1) Initiate MVI @ 1 tb qd 2) Initiate vitamin C @ 500 mg bid and zinc sulfate @ 220 mg for 7 days 3) Encourage optimal PO intake 4) Refer to outpatient RD/CD[facility] for weight management 5) Follow-up with cardiology 6) Continue to monitor I&O, labs, and skin integrity Expected Outcomes/Goals: 1) appetite and labs to improve 2) wounds to improve 3) gradual wt loss 4) f/u in 3-5 days ADAMS HURTADO RESIDENT Apr 29, 2025 19:40
[2025-04-29] MEDS ORDERED: ATORVASTATIN 20 MG TAB PO SCH (22:00)
[2025-04-30] VITALS (7 sets, daily range): BP systolic 118–151; BP diastolic 76–90; PULSE 61–83; RESP 17–79; TEMP 97.8–98.8; O2SAT 93–97
[2025-04-30 08:37] LABS: Calcium 9.5 mg/dL (8.7-10.4); Chloride 102 mmol/L (98-107); Hematocrit 39.8 % (41.0-53.0); Hemoglobin 13.4 g/dL (13.5-17.5); Mean Corpuscular Hemoglobin 29.6 pg (28.0-32.0); Mean Corpuscular Volume 87.7 fL (80.0-100.0); Nucleated Red Blood Cells % 0.1 %; Potassium 4.8 mmol/L (3.5-5.1); Sodium 137 mmol/L (136-145)
[2025-04-30 08:38] LABS: Anion Gap 10 (5-15); Carbon Dioxide 25 mmol/L (20-31)
[2025-04-30 08:43] LABS: BUN/Creatinine Ratio 12.5 (10.0-20.0); Blood Urea Nitrogen 11 mg/dL (9-23)
[2025-04-30 08:44] LABS: Glucose 143 mg/dL (74-106); Magnesium 1.6 mg/dL (1.6-2.6)
[2025-04-30] MEDS: dilTIAZem 120MG ER CAP PO SCH (09:32)
[2025-04-30] MEDS: ENALAPRIL MALEATE 10 MG TAB PO SCH (09:34)
--- NOTE | 2025-04-30 11:43 | DVHPNRES ---
Progress Note Date Seen: Apr 30, 2025 Resident Creating Document: A Medical Necessity Reason Pt with a Central, PICC or Fol: No Subjective Review of Systems This is a 54-year-old male with with past medical history of type 2 diabetes mellitus, hypertension, HLD, type B aortic dissection, peripheral neuropathy, hypokalemia, chronic back, spinal stenosis with herniated disc pain present to ER with the complain of rash in perineal region including genitalia and bilateral inner thigh associated with urinary symptoms for 7 days accompanied with fever. Patient reports his perineal area rash that started 7 days ago and has been progressively worsen . For past 5 days he has been noticed brownish discharge and painful micturition. He has been experiencing fever since Monday and took Tylenol. symptoms appear significant discomfort. Never done angiogram or stress test, seen by cardiology in 2010. Past medical history: Type 2 diabetes mellitus with peripheral neuropathy, HTN, hypercholesterolemia, type B aortic dissection in 2009 not surgically treated Surgical history: Oral surgery Family history: Paternal grandmother: Cancer Social history: Substance abuse occasionally alcohol, denies any marijuana cocaine or methamphetamine Decision-making: Patient is the decision maker and his medical care, lives with roommate in a private house PCP: unknown Home medication: Diltiazem, pantoprazole, aspirin, enalapril, gabapentin, metformin, glipizide, potassium chloride, tramadol, furosemide , rosuvastatin, amitriptyline, iron, fish oil, Pepcid Patient seen and evaluated in bedside. Currently denies any acute distress like abdominal pain, dysuria, chest pain, SOB, headache. No acute event overnight. Continue current IV antibiotic. Objective vital signs Vital Sign Date Time Temp Pulse Resp B/P (MAP) Pulse Ox O2 Delivery O2 Flow Rate FiO2 04/30/25 09:34 151/88 04/30/25 09:33 65 04/30/25 08:52 98.8 17 96 98.8 04/30/25 08:00 Room Air* 0 21 Total Intake and Output 04/29/25 04/29/25 04/30/25 15:00 23:00 07:00 Intake Total 50 ml 1080 ml 150 ml Balance 50 ml 1080 ml 150 ml medications Current Medications Medications Dose Ordered Sig/Yamileth Route Start Time Stop Time Status Last Admin Dose Admin Acetaminophen 650 mg Q6HP PRN PO 04/25/25 15:15 04/26/25 22:26 650 MG Ondansetron HCl 4 mg Q4HP PRN IV 04/25/25 15:15 Enoxaparin Sodium 40 mg DAILY SC 04/26/25 10:00 04/30/25 09:35 40 MG Clindamycin Phosphate 50 ml @ 50 mls/hr Q8HR IV 04/25/25 22:00 04/30/25 06:06 50 MLS/HR Ceftriaxone Sodium 50 ml @ 100 mls/hr DAILY@09 IV 04/26/25 09:00 04/30/25 09:30 100 MLS/HR Clotrimazole 1 applic Q12HR TOP 04/25/25 22:00 04/29/25 21:56 1 APPLIC Diagnostic Test (Pha) 1 strip ACHS 04/25/25 17:00 04/30/25 06:07 1 STRIP Insulin Human Regular ACHS SC 04/25/25 17:00 04/30/25 06:17 2 UNITS Dextrose 50 ml UD PRN IV 04/25/25 15:15 Pantoprazole Sodium 40 mg DAILY@0600 PO 04/26/25 06:00 04/30/25 06:06 40 MG Amitriptyline HCl 10 mg HS PO 04/25/25 22:00 04/29/25 21:55 10 MG Atorvastatin Calcium 20 mg HS PO 04/25/25 22:00 04/29/25 21:55 20 MG Nystatin 1 applic BID TOP 04/27/25 22:00 04/29/25 21:56 1 APPLIC Tramadol HCl 50 mg Q6HP PRN PO 04/27/25 11:15 04/30/25 02:11 50 MG Tramadol HCl 50 mg Q6HP PRN PO 04/27/25 13:00 UNV Carvedilol 25 mg Q12HR PO 04/27/25 22:00 04/30/25 09:33 25 MG Hydralazine HCl 10 mg Q6HP PRN IV 04/28/25 17:15 Zinc Sulfate 220 mg DAILY PO 04/29/25 10:00 04/30/25 09:32 220 MG Ascorbic Acid 500 mg DAILY PO 04/29/25 10:00 04/30/25 09:34 500 MG Enalapril Maleate 20 mg DAILY PO 04/30/25 10:00 04/30/25 09:34 20 MG Diltiazem HCl 120 mg DAILY PO 04/30/25 10:00 04/30/25 09:32 120 MG Examination General Appearance: Alert, Oriented X3, Cooperative, mild distress, moderate distress, obese HEENT: Atraumatic, PERRLA Respiratory: Clear to auscultation, Normal air movement Cardiovascular: Regular rate, Normal S1, Normal S2 Abdominal: Normal bowel sounds, Soft, No tenderness Extremities: No clubbing, No cyanosis, Normal pulses Skin: rash perineal area, scanty discharge on perineal area including genitalia Neuro: Normal speech, (Gait instability) laboratory and microbiology Laboratory Tests 04/30/25 08:02 Test 04/30/25 08:02 Range/Units Serum Glucose 143 H 74-106 mg/dL Microbiology Date/Time Source Procedure Growth Status 04/27/25 16:24 Scrotum Gram Stain - Final Resulted 04/27/25 16:24 Scrotum Wound Culture - Preliminary Resulted 04/27/25 09:55 Voided Urine Urine Culture - Final Complete 04/25/25 13:15 Blood Blood Culture - Preliminary NO GROWTH AFTER 72 HOURS OF INCUBATION. Resulted Problem List/Assessment/Plan Problem List/Assessment/Plan Sepsis due to cellulitis perineal area including genitalia Perineal Candidiasis WBC 12.9 with left-shifted, neutrophil 85.1 on admission No leukocytosis today MRSA -negative Acetaminophen Tramadol 50 mg q.6 p.r.n. Encouraged hydration IV antibiotic clindamycin and ceftriaxone Topical clotrimazole cream Nystatin powder Zinc and vitamin-C Blood culture x 2 negative on 04/25/2025 Urine culture shows mixed livia Wound culture -preliminary report Monitor vitals Questionable cardiac arrhythmia Home medication diltiazem, carvedilol Echo done on 04/29/2025: Concentric LVH. Left atrial enlargement. Aortic root enlargement. Moderate mitral annular calcification of the base of the posterior mitral leaflet. The aortic valves are sclerotic however not stenotic. Left ventricular function is preserved. EF is 60%. Normal RV function. Diltiazem 120 mg ER daily Carvedilol 25 mg b.i.d. JAYESH due to vasomotor nephropathy Creatinine level 1.49 unknown baseline, on admission JAYESH resolved Avoid Nephrotoxic drugs Encouraged oral fluid intake Type 2 diabetes mellitus with peripheral neuropathy Hemoglobin A1c 5.8 Insulin sliding scale Home medication: Metformin, glipizide Gabapentin Essential hypertension Home medication resume accordingly Diltiazem 120 mg ER daily Carvedilol 25 mg b.i.d. Enalapril 20 mg p.o. 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 Full code status. Case discussed with Dr. Jimenes Plan discussed with: Patient, Other (Nurse) My Orders My Orders Orders - ADAMS HURTADO Procedure Category Date Status Time Urinalysis LAB 04/29/25 Logged 17:57 Kidney US 04/29/25 Resulted 17:57 Enalapril Tablet PHA 04/30/25 In Process (Vasotec Tablet) 10:00 Diltiazem Er Capsule PHA 04/30/25 In Process (Cardizem Er Capsul 10:00 Mrsa Screen THO 04/29/25 In Process 20:11 Urinalysis LAB 04/30/25 Transmitted 11:39 Dietary Evaluation Review Recommendations by RD: Dietary education by RD Comments: 1) Initiate MVI @ 1 tb qd 2) Initiate vitamin C @ 500 mg bid and zinc sulfate @ 220 mg for 7 days 3) Encourage optimal PO intake 4) Refer to outpatient RD/[facility] for weight management 5) Follow-up with cardiology 6) Continue to monitor I&O, labs, and skin integrity Expected Outcomes/Goals: 1) appetite and labs to improve 2) wounds to improve 3) gradual wt loss 4) f/u in 3-5 days ADAMS HURTADO RESIDENT Apr 30, 2025 11:43
[2025-04-30 16:20] LABS: Urine Protein, UAD 1+ (Negative)
[2025-05-01 01:00] VITALS: BP 130/86; PULSE 72; RESP 19; TEMP 98.4; O2SAT 95
[2025-05-01 05:00] VITALS: BP 126/79; PULSE 66; RESP 17; TEMP 97.7; O2SAT 94
[2025-05-01 07:28] LABS: Chloride 102 mmol/L (98-107); Potassium 4.4 mmol/L (3.5-5.1)
[2025-05-01 07:29] LABS: Anion Gap 10 (5-15); Calcium 9.4 mg/dL (8.7-10.4); Carbon Dioxide 23 mmol/L (20-31)
[2025-05-01 07:30] LABS: Sodium 135 mmol/L (136-145)
[2025-05-01 07:34] LABS: BUN/Creatinine Ratio 16.7 (10.0-20.0); Blood Urea Nitrogen 14 mg/dL (9-23)
[2025-05-01 07:41] LABS: Glucose 151 mg/dL (74-106); Hematocrit 39.4 % (41.0-53.0); Hemoglobin 13.6 g/dL (13.5-17.5); Mean Corpuscular Hemoglobin 30.0 pg (28.0-32.0); Mean Corpuscular Volume 87.1 fL (80.0-100.0); Nucleated Red Blood Cells % 0.0 %
[2025-05-01 08:00] VITALS: PULSE 66; RESP 16; O2SAT 95
[2025-05-01 09:00] VITALS: BP 131/84; PULSE 66; RESP 16; TEMP 97.8; O2SAT 95
[2025-05-01] MEDS ORDERED: DILT-29 PO (10:32)
[2025-05-01] MEDS ORDERED: CEPH250C PO (10:32)
[2025-05-01] MEDS ORDERED: ATOR20TA50 PO (10:32)
[2025-05-01] MEDS ORDERED: ASCO500T11 PO (10:32)
[2025-05-01] MEDS ORDERED: MUPI2CRE17 EX (10:32)
[2025-05-01] MEDS ORDERED: PANT40T PO (10:32)
[2025-05-01] MEDS ORDERED: AMIT-399 PO (10:32)
[2025-05-01] MEDS ORDERED: CARV-216 PO (10:32)
[2025-05-01 13:00] VITALS: BP 145/88; PULSE 73; RESP 14; TEMP 97.8; O2SAT 96
[2025-05-01 17:00] VITALS: BP 149/80; PULSE 80; RESP 18; TEMP 98.1; O2SAT 98
--- NOTE | 2025-05-01 18:17 | DVHDSRES ---
Discharge Summary Date of Admission Resident Creating Document: ADAMS HURTADO RESIDENT Apr 25, 2025 at 15:06 Date of Discharge: May 01, 2025 Labs/Diagnostic Data: Laboratory Results Test 05/01/25 10:41 05/01/25 06:35 04/30/25 11:39 04/30/25 08:02 POC Glucose 190 mg/dl (70-106) White Blood Count 9.7 10^3/uL (4.4-10.8) Red Blood Count 4.52 10^6/uL (4.5-5.90) Hemoglobin 13.6 g/dL (13.5-17.5) Hematocrit 39.4 % (41.0-53.0) Mean Corpuscular Volume 87.1 fL (80.0-100.0) Mean Corpuscular Hemoglobin 30.0 pg (28.0-32.0) Mean Corpuscular Hemoglobin Concent 34.5 g/dL (32.0-36.0) Red Cell Distribution Width 14.6 % (11.8-14.3) Platelet Count 213 10^3/uL (140-450) Mean Platelet Volume 7.7 fL (6.9-10.8) Neutrophils (%) (Auto) 71.8 % (37.0-80.0) Lymphocytes (%) (Auto) 16.7 % (10.0-50.0) Monocytes (%) (Auto) 8.5 % (0.0-12.0) Eosinophils (%) (Auto) 2.3 % (0.0-7.0) Basophils (%) (Auto) 0.7 % (0.0-2.0) Neutrophils # (Auto) 7.0 10 ^3/uL (1.6-8.6) Lymphocytes # (Auto) 1.6 10 ^3/uL (0.4-5.4) Monocytes # (Auto) 0.8 10 ^3/uL (0-1.3) Eosinophils # (Auto) 0.2 10 ^3/uL (0-0.8) Basophils # (Auto) 0.1 10 ^3/uL (0-0.2) Nucleated Red Blood Cells 0.0 % Sodium Level 135 mmol/L (136-145) Potassium Level 4.4 mmol/L (3.5-5.1) Chloride Level 102 mmol/L (98-107) Carbon Dioxide Level 23 mmol/L (20-31) Anion Gap 10 (5-15) Blood Urea Nitrogen 14 mg/dL (9-23) Creatinine 0.84 mg/dL (0.700-1.30) Glomerular Filtration Rate Calc 105 mL/min (>90) BUN/Creatinine Ratio 16.7 (10.0-20.0) Serum Glucose 151 mg/dL (74-106) Calcium Level 9.4 mg/dL (8.7-10.4) Urine Color Yellow (Yellow) Urine Clarity Clear (Clear) Urine pH 6.0 (5.0-9.0) Urine Specific [place] 1.020 (1.001-1.035) Urine Protein 1+ (Negative) Urine Ketones Negative (Negative) Urine Blood 2+ /uL (Negative) Urine Nitrite Negative (Negative) Urine Bilirubin Negative (Negative) Urine Urobilinogen 2 mg/dL (Negative) Urine Leukocyte Esterase 1+ /uL (Negative) Urine RBC 3 /hpf (0 - 3) Urine Microscopic WBC 2 /HPF (0-3) Urine Squamous Epithelial Cells Few /hpf (<5) Urine Bacteria None seen /hpf (None Seen) Urine Glucose 1+ mg/dL (Normal) Magnesium Level 1.6 mg/dL (1.6-2.6) Test 04/28/25 07:08 04/27/25 09:55 04/25/25 13:18 04/25/25 13:15 Differential Total Cells Counted 100.0 (100) Neutrophils % (Manual) 65 (37.0-80.0) Band Neutrophils % (Manual) 1 Lymphocytes % (Manual) 22 (10.0-50.0) Monocytes % (Manual) 9 (0-12) Eosinophils % (Manual) 2 (0-7) Basophils % (Manual) 0 (0.0-2.0) Metamyelocytes % (manual) 0 Myelocytes % (Manual) 1 Promyelocytes % (Manual) 0 Blast Cells % (Manual) 0 Reactive Lymphocytes 0 Platelet Estimate Adequate Urine Uric Acid Crystals Few /hpf (None Seen) Urine Opiates Screen Neg (NEGATIVE) Urine Fentanyl Screen Neg (NEGATIVE) Urine Barbiturates Screen Neg (NEGATIVE) Urine Phencyclidine Screen Neg (NEGATIVE) Urine Amphetamines Screen Neg (NEGATIVE) Urine Benzodiazepines Screen Neg (NEGATIVE) Urine Cocaine Screen Neg (NEGATIVE) Urine Cannabinoids Screen Neg (NEGATIVE) Lactic Acid Level 1.1 mmol/L (0.4-2.0) Prothrombin Time 19.2 sec (9.3-11.8) Prothrombin Time INR 1.93 (0.9-1.15) Activated Partial Thromboplast Time 45.0 SEC (24.5-34.5) Hemoglobin A1c 5.8 % A1C (<5.7) Phosphorus Level 2.9 mg/dL (2.4-5.1) Total Bilirubin 0.9 mg/dL (0.2-1.0) Direct Bilirubin 0.4 mg/dL (<0.3) Aspartate Amino Transferase (AST) 45 U/L (13-40) Alanine Aminotransferase (ALT) 29 U/L (7-40) Alkaline Phosphatase 61 U/L (46-116) Total Protein 7.6 g/dL (5.7-8.2) Albumin 4.3 g/dL (3.2-4.8) Triglycerides Level 204 mg/dL (< 150) Cholesterol Level 121 mg/dL (< 200) LDL Cholesterol 59 mg/dL (< 100) HDL Cholesterol 11 mg/dL (40-59) Vitamin B12 Level > 2000 pg/mL (211-911) Vitamin D 25-Hydroxy 36.0 ng/mL (30.0-100) Thyroid Stimulating Hormone (TSH) 3.32 uIU/mL (0.55-4.78) Other Laboratory Tests 05/01/25 06:35 Brief Hx & Hospital Course: This is a 54-year-old male with with past medical history of type 2 diabetes mellitus, hypertension, HLD, type B aortic dissection, peripheral neuropathy, hypokalemia, chronic back, spinal stenosis with herniated disc pain present to ER with the complain of rash in perineal region including genitalia and bilateral inner thigh associated with urinary symptoms for 7 days accompanied with fever. Patient reports his perineal area rash that started 7 days ago and has been progressively worsen . For past 5 days he has been noticed brownish discharge and painful micturition. He has been experiencing fever since Monday and took Tylenol. symptoms appear significant discomfort. Never done angiogram or stress test, seen by cardiology in 2010. Past medical history: Type 2 diabetes mellitus with peripheral neuropathy, HTN, hypercholesterolemia, type B aortic dissection in 2009 not surgically treated Surgical history: Oral surgery Family history: Paternal grandmother: Cancer Social history: Substance abuse occasionally alcohol, denies any marijuana cocaine or methamphetamine Decision-making: Patient is the decision maker and his medical care, lives with roommate in a private house PCP: unknown HOSPITAL COURSE: patient admitted due to sepsis secondary to cellulitis perineal and genital area. during admission, lab shows leukocytosis and patient treated with IV antibiotic ceftriaxone and clindamycin. During hospital stay, patient complained of hematuria, renal ultrasound show no hydronephrosis or any renal or ureteric calculus. blood culture x2 negative, wound culture shows growth of Proteus mirabilis Klebsiella pneumoniae Enterococcus and group B Streptococcus. patient's symptoms significantly improved with IV antibiotic and topical treatment. leukocytosis resolved and all lab value near normal range. echo on 04/29/2025 shows left atrial enlargement, aortic root enlargement, EF 60% no pericardial effusion. patient currently denies any fever, SOB, abdominal pain, dysuria, headache or any other acute distress. perineal and genitalia wound nearly healed. patient advised to continue p.o. antibiotic Keflex and mupirocin topical antibiotic total 14 days. patient also educated maintain personal hygiene and keep wound area dry and clean. Patient is hemodynamically stable for discharge. The patient has received maximum benefits from inpatient treatment. Time was given to answer patient/ parents questions and concerns in Layman terms. patient verbalized understanding and agree with treatment and follow-up. Patient was recommended to return to the ED if she experiences any worsening symptoms such as, but not limited to current symptoms. Continue current home medication. Follow-up with discharge Clinic within 1 weeks on Monday morning and follow up with PCP and Cardiology within 2 weeks after discharge . Patient educated and advised to resume home medication. Physical examination Constitutional: No: Fever, Chills, Sweats, Weakness, Malaise Eyes: No: Pain, Vision change, Conjunctivae inflammation, Eyelid inflammation, Other, Redness ENT: No: Ear pain, Ear discharge, Nose pain, Nose discharge, Nose congestion, Mouth pain, Mouth swelling, Throat pain, Throat swelling Respiratory: Shortness of breath; No: Cough, Dry, SOB with excertion, Wheezing, Hemoptysis, Pleuritic Pain, Sputum, Wheezing Cardiovascular: No: Chest Pain, Palpitations, Orthopnea, Paroxysmal Noc. Dyspnea, Edema, Lt Headedness Gastrointestinal: No: Nausea, Vomiting, Abdominal Pain, Diarrhea, Constipation, Melena, Hematochezia Genitourinary: No Dysuria, No Frequency, No Incontinence, No Hematuria, No Retention Musculoskeletal: No: other, neck pain, shoulder pain, arm pain, back pain, hand pain, leg pain, foot pain Skin: Perineal and genital area crusting with mild erythema isn't but no bleeding or active discharge Neurological: No: Weakness, Numbness, Incoordination, Change in speech, Confusion, Seizures Case discussed with Dr. Jimenes, patient, nurse Operations or Procedures ORDERING PHYSICIAN: SHEKHAR GUERRA RESIDENT PROCEDURE(s): CXR2 - CHEST TWO VIEWS ROUTINE REASON: SOB ORDER NUMBER(s): [id number], ACCESSION NUMBER(s): [id number] Chest x-ray Technique: PA and lateral views CLINICAL INDICATION: SOB FINDINGS: Left ventricular configuration to the heart. Aorta tortuous. No infiltrates or effusions. IMPRESSION: 1. No acute cardiopulmonary pathology ATED BY: JUAN TOURE MD DICTATED DATE/TIME: 04/26/25 1054 ORDERING PHYSICIAN: ADAMS HURTADO PROCEDURE(s): KIDUS - KIDNEY REASON: Hematuria ORDER NUMBER(s): [id number], ACCESSION NUMBER(s): [id number] RENAL ULTRASOUND History: Hematuria Comparison: None Technique: Multiple real-time sonographic images of the kidney and bladder were obtained in conjunction with Doppler imaging. Findings: The right kidney measures 12.8 cm and demonstrates no evidence of hydronephrosis, perinephric fluid collection, or shadowing stone. The left kidney measures 13.9 cm and demonstrates no evidence of hydronephrosis, perinephric fluid collection, or shadowing stone. Urinary bladder: Postvoid residual 54 cc. Impression: No hydronephrosis. Bladder postvoid residual of 54 cc. ATED BY: LADAN CORDOVA MD DICTATED DATE/TIME: 04/29/25 1377 Condition at Discharge: Stable Final Diagnosis/Problems List Sepsis due to cellulitis perineal area including genitalia Perineal Candidiasis Questionable cardiac arrhythmia JAYESH due to vasomotor nephropathy Type 2 diabetes mellitus with peripheral neuropathy Essential hypertension Hyperlipidemia Hypomagnesemia Hyponatremia History of aortic dissection, no surgery Tinea cruris Morbid obesity, BMI 43.0 Discharge Disposition: Home Discharge Instruct/Medications Diet: Cardiac 2g Na,low cholest Activity: No Restrictions, As Tolerated Follow Up/Referral: PCP Outpatient continuity clinic Monday morning Cardiology follow-up within 2-4 weeks after discharge Scheduled Amitriptyline HCl (Amitriptyline HCl), 10 MG PO HS Ascorbic Acid (Vitamin C Tablet), 500 MG PO DAILY Atorvastatin Calcium (Atorvastatin Calcium), 20 MG PO HS Carvedilol (Coreg), 25 MG PO Q12HR Cephalexin (Keflex Capsule), 1 CAP PO QID Cephalexin (Keflex Capsule), 1 CAP PO QID Diltiazem Hcl (Diltiazem Hcl Er), 0.5 CAP PO DAILY Mupirocin Calcium (Topical) (Mupirocin), 2 % EX BID Pantoprazole Sodium Sesquihydr (Pantoprazole Sodium), 40 MG PO DAILY@0600 Scheduled PRN Acetaminophen (Acetaminophen), 500 MG PO Q4HP PRN Ibuprofen Micronized (Ibuprofen), 800 MG PO Q8HP PRN Discharge Statement: "Patient was advised to return to the ER or call 911 if any headaches, dizziness, shortness of breath, chest pain, abdominal pain, bleeding, fevers, or worsening of medical condition. Patient was counseled about treatment plan, medications, possible side effects, patientverbalized understanding. All questions were answered to the best of my ability. This discharge took greater then 30 minutes in planning, reviewing documentation, counseling the patient, and discussing with other team members." ASSESSMENT ASSESSMENT Assessment Cellulitis Perineal area. ADAMS HURTADO RESIDENT May 01, 2025 18:17
== END 2025-05-01 18:46 | disposition home or self-care (01) | DRG 720 ==
LOC: EDBD 12:00 → EDUNIT# 12:00 → ER 12:00 → OVERFLOW 15:06 → CENTRAL 16:35
PROVIDERS: ADMIT Student in an Organized Health Care Education/Training Program; ATTEND Student in an Organized Health Care Education/Training Program
DX: A40.1 Sepsis due to streptococcus, group B (principal); N17.0 Acute kidney failure with tubular necrosis; I71.00 Dissection of unspecified site of aorta; L03.314 Cellulitis of groin; E11.42 Type 2 diabetes mellitus with diabetic polyneuropathy; E87.1 Hypo-osmolality and hyponatremia; B35.6 Tinea cruris; B37.2 Candidiasis of skin and nail; E11.65 Type 2 diabetes mellitus with hyperglycemia; E66.01 Morbid (severe) obesity due to excess calories; G89.29 Other chronic pain; L03.119 Cellulitis of unspecified part of limb; I10 Essential (primary) hypertension; L03.315 Cellulitis of perineum; I49.9 Cardiac arrhythmia, unspecified; E78.00 Pure hypercholesterolemia, unspecified; E83.42 Hypomagnesemia; N49.9 Inflammatory disorder of unspecified male genital organ; Z80.9 Family history of malignant neoplasm, unspecified; Z68.41 Body mass index [BMI] 40.0-44.9, adult; Z79.899 Other long term (current) drug therapy
CPT/HCPCS: 36415; 71046; 76775; 80048; 80061; 80076; 80307; 81001; 82306; 82607; 82962; 83036; 83605; 83735; 84100; 84443; 85007; 85025; 85027; 85610; 85730; 87040; 87077; 87081; 87086; 87186; 87205; 93005; 93306; 96365; 96366; G0378; J1815; J3490